=== PATIENT | male | born 1965 | race Caucasian/White ===

== ENCOUNTER 2022-03-18 13:28 | Inpatient (IN) | payer MEDICARE, OTHER ==
[~2022-03-18] VITALS: Ht 170.2 cm; Wt 60.5 kg
[~2022-03-18 13:28] MED LIST: ASPI325T; ASPI81TA3; ASPI81TA3 PO; DIGO0.257; PLAV75TA2; PROT1TAB2
[2022-03-18] MEDS ORDERED: ONDANSETRON 4MG 2ML VIAL IV ONE (14:30)
[2022-03-18] MEDS ORDERED: MORPHINE 2 MG/ML 1ML VIAL IV ONE (14:30)
[2022-03-18] MEDS ORDERED: LIDOCAINE 5% (LIDODERM) PATCH TD ONE (14:30)
[2022-03-18] MEDS ORDERED: ACETAMINOPHEN 500 MG TAB PO ONE (15:40)
[2022-03-18 15:41] LABS: BASO % 0.4 % (0.0-1.0); EOS # 0.1 10^3/uL (0.0-0.5); EOS % 1.1 % (0.0-3.0); HEMATOCRIT 37.9 % (42.0-52.0); HEMOGLOBIN 12.7 g/dl (13.5-17.5); LYMPH # 1.2 10^3/uL (1.5-5.0); LYMPH % 14.9 % (24.0-44.0); MEAN CORPUSCULAR HEMOGLOBIN 31.3 pg (27.0-33.0); MEAN CORPUSCULAR HGB CONC 33.5 g/dl (32.0-36.5); MEAN CORPUSCULAR VOLUME 93.3 fl (80.0-96.0); MONO % 12.8 % (2.0-8.0); NEUTROPHILS # 5.5 10^3/uL (1.5-8.5); NEUTROPHILS % 70.3 % (36.0-66.0); PLATELET COUNT, AUTOMATED 376 10^3/uL (150-450); RED BLOOD COUNT 4.06 10^6/uL (4.30-6.10); WHITE BLOOD COUNT 7.8 10^3/uL (4.0-10.0)
[2022-03-18] MEDS ORDERED: GABAPENTIN 300 MG CAP PO ONE (15:50)
[2022-03-18 15:54] LABS: D-DIMER QUANT 2276.2 ng/ml (<500)
[2022-03-18 16:33] LABS: ALBUMIN 3.4 GM/DL (3.2-5.2); ALT/SGPT 14 U/L (12-78); BILIRUBIN,TOTAL 0.7 MG/DL (0.2-1.0); BLOOD UREA NITROGEN 11 MG/DL (7-18); CALCIUM LEVEL 9.6 MG/DL (8.5-10.1); CARBON DIOXIDE LEVEL 31 MEQ/L (21-32); CHLORIDE LEVEL 100 MEQ/L (98-107); CREATININE FOR GFR 0.93 MG/DL (0.70-1.30); GLOMERULAR FILTRATION RATE > 60.0 (>56); GLUCOSE, FASTING 87 MG/DL (70-100); POTASSIUM SERUM 4.1 MEQ/L (3.5-5.1); SODIUM LEVEL 135 MEQ/L (136-145); TOTAL PROTEIN 7.4 GM/DL (6.4-8.2)
[2022-03-18 16:34] LABS: ERYTHROCYTE SEDIMENTATION RATE 69 mm/hr (0-20)
[2022-03-18 16:36] LABS: RSV AMPLIFICATION NEGATIVE (NEGATIVE)
[2022-03-18 16:38] LABS: INR 1.01; PROTHROMBIN TIME 13.5 SECONDS (12.5-14.5)
[2022-03-18 16:39] LABS: PARTIAL THROMBOPLASTIN TIME 33.2 SECONDS (24.8-34.2)
[2022-03-18] MEDS ORDERED: ATOR40TA75 PO (16:55)
[2022-03-18] MEDS ORDERED: ALBU8.5H INH (16:55)
[2022-03-18] MEDS ORDERED: OMEP-173 PO (16:55)
[2022-03-18] MEDS ORDERED: ASPI81TA26 PO (16:55)
[2022-03-18] MEDS ORDERED: BUDE10.7 INH (16:55)
[2022-03-18] MEDS ORDERED: NITR0.4S14 SL (16:55)
[2022-03-18] MEDS ORDERED: PARO5TAB PO (16:55)
[2022-03-18] MEDS ORDERED: HOME MED LIST COMPLETE! XX SCH (16:55)
[2022-03-18 17:35] LABS: HEMOGLOBIN A1c 5.5 %
[2022-03-18] MEDS ORDERED: NITROGLYCERIN 0.4 MG SUBL TABLET SL PRN (17:40)
[2022-03-18] MEDS ORDERED: ALBUTEROL 90 MCG/ACT 8GM HFA INHALER INH PRN (17:40)
[2022-03-18] MEDS ORDERED: ISOVUE-370 76% 100ML VIAL As Ordered ONE (18:16)
[2022-03-18] MEDS ORDERED: PROHANCE 279.3MG/ML 15ML VIAL As Ordered ONE (18:52)
[2022-03-18] MEDS: SYMBICORT 160/4.5MCG INHALER 6GM INH SCH (20:00)
[2022-03-18 20:55] VITALS: BP 106/63
[2022-03-18] MEDS ORDERED: ACETAMINOPHEN TAB 650MG DOSE (2X325MG) PO PRN (21:30)
[2022-03-18] MEDS: IBUPROFEN 600MG TAB PO PRN (21:33)
[2022-03-19 05:08] VITALS: BP 112/68
[2022-03-19 07:39] LABS: HEMATOCRIT 38.4 % (42.0-52.0); HEMOGLOBIN 12.3 g/dl (13.5-17.5); MEAN CORPUSCULAR HEMOGLOBIN 30.9 pg (27.0-33.0); MEAN CORPUSCULAR VOLUME 96.5 fl (80.0-96.0); PLATELET COUNT, AUTOMATED 384 10^3/uL (150-450); RED BLOOD COUNT 3.98 10^6/uL (4.30-6.10); WHITE BLOOD COUNT 6.8 10^3/uL (4.0-10.0)
[2022-03-19 08:23] LABS: ALBUMIN 2.8 GM/DL (3.2-5.2); ALT/SGPT 13 U/L (12-78); BILIRUBIN,TOTAL 0.3 MG/DL (0.2-1.0); BLOOD UREA NITROGEN 13 MG/DL (7-18); CALCIUM LEVEL 9.5 MG/DL (8.5-10.1); CARBON DIOXIDE LEVEL 33 MEQ/L (21-32); CHLORIDE LEVEL 102 MEQ/L (98-107); GLOMERULAR FILTRATION RATE > 60.0 (>56); GLUCOSE, FASTING 94 MG/DL (70-100); POTASSIUM SERUM 4.8 MEQ/L (3.5-5.1); SODIUM LEVEL 139 MEQ/L (136-145); TOTAL PROTEIN 6.7 GM/DL (6.4-8.2)
[2022-03-19] MEDS ORDERED: LIDOCAINE 1% MDV 20ML VIAL As Ordered ONE (08:36)
[2022-03-19] MEDS: SYMBICORT 160/4.5MCG INHALER 6GM INH SCH ×2 (09:11→21:00)
[2022-03-19 09:28] LABS: APPEARANCE, CSF CLEAR (CLEAR); COLOR, CSF COLORLESS (COLORLESS); CSF TUBE# CELL CNT TUBE 3
[2022-03-19 09:42] LABS: CSF TUBE# GLU TUBE 2; CSF TUBE# TP TUBE 3; GLUCOSE CSF 69 MG/DL (40-75); TOTAL PROTEIN,CSF 34 MG/DL (15-45)
[2022-03-19] MEDS: OMEPRAZOLE 20MG CAP PO SCH (10:21)
[2022-03-19] MEDS: ATORVASTATIN 20 MG TAB PO SCH (10:21)
[2022-03-19] MEDS: ASPIRIN 81MG ENTERIC TABLET PO SCH (10:21)
[2022-03-19] MEDS: PARoxetine 10MG TABLET PO SCH (10:22)
[2022-03-19 11:29] LABS: ALBUMIN 3.53 GM/DL (3.29-5.55); ALBUMIN % 47.7 % (55.8-66.1); ALPHA-1-GLOBULIN % 8.5 % (2.9-4.9); ALPHA-1-GLOBULINS 0.63 GM/DL (0.17-0.41); ALPHA-2-GLOBULINS 1.11 GM/DL (0.42-0.99); BETA-1-GLOBULINS 0.51 GM/DL (0.28-0.60); BETA-1-GLOBULINS % 6.9 % (4.7-7.2); BETA-2-GLOBULINS % 7.9 % (3.2-6.5)
[2022-03-19 11:30] LABS: BETA-2-GLOBULINS 0.58 GM/DL (0.19-0.55); GAMMA GLOBULINS 1.04 GM/DL (0.65-1.58)
[2022-03-19 14:16] LABS: VITAMIN B12 LEVEL 423 PG/ML (247-911)
[2022-03-19 15:13] VITALS: BP 113/71
[2022-03-19 15:45] VITALS: BP 107/74
[2022-03-19] MEDS: IBUPROFEN 600MG TAB PO PRN (16:24)
[2022-03-19] MEDS ORDERED: GABAPENTIN 300 MG CAP PO ONE (19:50)
[2022-03-19] MEDS ORDERED: COLCHICINE 0.6 MG TABLET PO ONE (19:55)
[2022-03-19 19:58] VITALS: BP 105/74
[2022-03-19] MEDS ORDERED: ENOXAPARIN 40MG/0.4ML SYRINGE (J1650 PER 10MG) SC SCH (21:00)
[2022-03-20 06:28] VITALS: BP 104/70
[2022-03-20] MEDS: SYMBICORT 160/4.5MCG INHALER 6GM INH SCH (07:40)
[2022-03-20 08:00] VITALS: BP 104/70
[2022-03-20 08:48] LABS: RHEUMATOID FACTOR QUANT < 10.0 IU/ML (<15.0); URIC ACID 2.3 MG/DL (3.5-7.2)
[2022-03-20] MEDS ORDERED: predniSONE 20 MG TAB PO SCH (09:00)
[2022-03-20] MEDS ORDERED: allopurinoL 100 MG TAB PO SCH (09:00)
[2022-03-20] MEDS ORDERED: COLC0.6T47 PO (09:32)
[2022-03-20] MEDS ORDERED: IBUP-1022 PO (09:32)
[2022-03-20] MEDS ORDERED: ALLO10TA PO (09:32)
[2022-03-20] MEDS ORDERED: ACET1TAB55 PO (09:32)
[2022-03-20] MEDS ORDERED: ASCO500T PO (09:38)
[2022-03-20] MEDS ORDERED: COLCHICINE 0.6 MG TABLET PO SCH (10:00)
[2022-03-20] MEDS: OMEPRAZOLE 20MG CAP PO SCH (10:04)
[2022-03-20] MEDS: ASPIRIN 81MG ENTERIC TABLET PO SCH (10:05)
[2022-03-20] MEDS: PARoxetine 10MG TABLET PO SCH (10:06)
[2022-03-20] MEDS: ATORVASTATIN 20 MG TAB PO SCH (10:06)
[2022-03-20 14:00] VITALS: BP 116/81
== END 2022-03-20 15:37 | disposition home health service (06) | DRG 351 ==
LOC: M ED 13:28 → M ED INP 16:47 → ENRESERV 03-19 13:33 → M MSPAV 03-19 16:01
PROVIDERS: ADMIT Student in an Organized Health Care Education/Training Program; ATTEND Student in an Organized Health Care Education/Training Program
DX: M10.9 Gout, unspecified (principal); G62.9 Polyneuropathy, unspecified; J43.9 Emphysema, unspecified; F32.A Depression, unspecified; E78.5 Hyperlipidemia, unspecified; I25.10 Atherosclerotic heart disease of native coronary artery without angina pectoris; I25.2 Old myocardial infarction; K21.9 Gastro-esophageal reflux disease without esophagitis; R26.9 Unspecified abnormalities of gait and mobility; Z79.82 Long term (current) use of aspirin; Z79.899 Other long term (current) drug therapy; Z92.21 Personal history of antineoplastic chemotherapy; Z85.118 Personal history of other malignant neoplasm of bronchus and lung; Z87.891 Personal history of nicotine dependence